=== PATIENT | male | born 1995 | race Caucasian/White ===

== ENCOUNTER 2019-03-09 00:03 | Emergency (ER) | payer OTHER ==
[2019-03-09 01:09] VITALS: RESP 18
[2019-03-09] MEDS ORDERED: diphenhydrAMINE 50 MG CAP PO STA (01:50)
--- NOTE | 2019-03-09 01:52 | ED ---
Skin/Abscess/FB HPI - General Chief complaint: Skin/Abscess/Foreign Body Stated complaint: skin problem Time Seen by Provider: 03/09/19 01:11 Source: patient Mode of arrival: ambulatory Limitations: no limitations - History of Present Illness Initial comments: 23-year-old male presenting for bed bug bites. Patient states he moved into a new apartment and he sees bedbugs all over. Patient states he has bites from head to toe. Patient denies a fevers. He denies any complaints of what redness. He states the lesions are itchy. Patient states he does not know what to do. Patient just moved here from [place]. Remaining abuse is negative. Upon arrival patient appears well no signs of acute distress. - Related Data Previous Rx's Medication Instructions Recorded diphenhydrAMINE & Zinc Cream 1 applic TOPICAL BID 7 Days #1 tube 03/09/19 [Benadryl Cream] Allergies Allergy/AdvReac Type Severity Reaction Status Date / Time No Known Allergies Allergy Verified 03/09/19 01:09 Review of Systems ROS Statement: Those systems with pertinent positive or pertinent negative responses have been documented in the HPI. ROS Other: All systems not noted in ROS Statement are negative. Past Medical History Past Medical History: No Reported History History of Any Multi-Drug Resistant Organisms: None Reported Past Surgical History: No Surgical Hx Reported Additional Past Surgical History / Comment(s): left leg, Past Psychological History: No Psychological Hx Reported Smoking Status: Never smoker Past Alcohol Use History: None Reported Past Drug Use History: None Reported General Exam - General Exam Comments Initial Comments: General: The patient is awake and alert, in no distress, and does not appear acutely ill. Eye: Pupils are equal, round and reactive to light, extra-ocular movements are intact. No nystagmus. There is normal conjunctiva bilaterally. No signs of icterus. Ears, nose, mouth and throat: There are moist mucous membranes and no oral lesions. Neck: The neck is supple, there is no tenderness or JVD. Cardiovascular: There is a regular rate and rhythm. No murmur, rub or gallop is appreciated. Respiratory: Lungs are clear to auscultation, respirations are non-labored, breath sounds are equal. No wheezes, stridor, rales, or rhonchi. Musculoskeletal: Normal ROM, no tenderness. Strength 5/5. Sensation intact. Pulses equal bilaterally 2+. Neurological: A&O x 3. CN II-XII intact grossly, There are no obvious motor or sensory deficits. Coordination appears grossly intact. Speech is normal. Skin: Skin is warm and dry and no rashes. Multiple sporadically distributed raised lesions on the head back abdomen lower extremity bilaterally upper extremities. These are not in the webspace there is no linear burrows. There is no vesicular lesions. There is no macular papular rashes. Psychiatric: Cooperative, appropriate mood & affect, normal judgment. Limitations: no limitations Course Vital Signs 03/09/19 03/09/19 01:04 02:20 Temperature 97.6 F 98 F Pulse Rate 68 88 Respiratory 18 18 Rate Blood Pressure 135/90 123/78 O2 Sat by Pulse 98 98 Oximetry Medical Decision Making - Medical Decision Making 23 you male presenting for evaluation of bed bug bites. Patient was immediately placed in the decontamination shower. Patient had obvious insect bites and examination. I discussed the importance of extremity she and avoiding the apartment until extermination has taken place. Otherwise patient is to monitor for infection there is no evidence of secondary infection at this time. Patient is provided a Benadryl cream as well as oral oral Benadryl for symptom back relief. Patient verbalized understanding of care plan and was discharged. While discussing case by attending provider Disposition Clinical Impression: Infestation by bed bug, Insect bites Disposition: HOME SELF-CARE Condition: Good Instructions (If sedation given, give patient instructions): Bed Bugs (ED) Additional Instructions: Please use medication as discussed. Please follow-up with family doctor in the next 2 days of symptoms have not improved. Please return to emergency room if the symptoms increase or worsen or for any other concerns. Prescriptions: diphenhydrAMINE & Zinc Cream [Benadryl Cream] 1 applic TOPICAL BID 7 Days #1 tube Is patient prescribed a controlled substance at d/c from ED?: No Referrals: None,Stated [Primary Care Provider] - 1-2 days Time of Disposition: 01:51
[2019-03-09 02:28] VITALS: BP 123/78; PULSE 88; TEMP 98
== END 2019-03-09 02:18 | disposition home or self-care (01) ==
LOC: EC 00:03
DX: B88.8 Other specified infestations (principal); W57.XXXA Bitten or stung by nonvenomous insect and other nonvenomous arthropods, initial encounter; Y92.009 Unspecified place in unspecified non-institutional (private) residence as the place of occurrence of the external cause
CPT/HCPCS: 99282